=== PATIENT | female | born 1955 | race Hispanic/Latino ===

== ENCOUNTER → 2020-06-20 | Day surgery (SDC) | payer OTHER ==
[~2020-06-20] MED LIST: ACETAMINOPHEN-COD PO; ASPIR 8181 MG PO; BENAZEPRIL HCL10 MG PO; BENAZEPRIL PO; CELEBREX200 MG PO; EVISTA60 MG PO; FUROSEMIDE40 MG PO; GLIMEPIRIDE2 MG PO; PIOGLITAZONE PO; PIOGLITAZONE-M1 EACH PO; POTASSIUM CHLO10 ME1 PO; PRAVASTATIN SOD40 MG PO; PROPOFOL IV EMULSION 10 MG/ML 20 ML VIAL ONE; URSODIOL300 MG PO
[2020-06-20 11:10] VITALS: BP 121/59
== END | disposition home or self-care (01) ==
LOC: OR 07:23
PROVIDERS: ATTEND Internal Medicine Gastroenterology
DX: K76.0 Fatty (change of) liver, not elsewhere classified (principal); Z86.010 Personal history of colon polyps; K57.30 Diverticulosis of large intestine without perforation or abscess without bleeding; K64.8 Other hemorrhoids; Z71.3 Dietary counseling and surveillance; E66.01 Morbid (severe) obesity due to excess calories; R06.83 Snoring; I10 Essential (primary) hypertension; E78.5 Hyperlipidemia, unspecified; E11.9 Type 2 diabetes mellitus without complications; Z88.0 Allergy status to penicillin; Z79.82 Long term (current) use of aspirin; Z79.84 Long term (current) use of oral hypoglycemic drugs; Z68.41 Body mass index [BMI] 40.0-44.9, adult
CPT/HCPCS: 36415; 45378; 82948; 93005; J2704; U0002